=== PATIENT | female | born 1990 | race Caucasian/White ===

== ENCOUNTER → 2018-04-04 | Outpatient (CLI) | payer MEDICAID ==
--- NOTE | 2018-04-04 16:22 | RADIOLOGY REPORT (SQ) ---
EXAM DESCRIPTION: U/S [id number] TRNABD 1GES W/ODOP COMPLETED DATE/TIME: 04/04/2018 1:31 pm REASON FOR STUDY: ENCOUNTER FOR SUPERVISION OF NORMAL FIRST , FIRST TRIMESTER Z34.01 ENCNT R FOR SUPRVSN OF NORMAL FIRST PREG, FIRST TRIMES COMPARISON: None. TECHNIQUE: Transabdominal static and realtime grayscale images acquired of the pelvis. Additional se lected spectral and color Doppler images recorded. All images stored on PACs. bHCG: Not available CLINICAL DATES: 9 weeks 3 days LIMITATIONS: None. FINDINGS: FETUS: Living intrauterine . ULTRASOUND EGA: 8 weeks 5 days ULTRASOUND VALENTE: 11/09/2018 CRL: 2.1 cm FHR: 120 beats per minute. SUBCHORIONIC BLEED: No SIZE OF BLEED: Not applicable. UTERUS: No masses. No anomalies. CERVICAL LENGTH: 2.7 cm Closed. RIGHT ADNEXA: Normal ovary with normal vascular flow. No adnexal free fluid. No adnexal masses. LEFT ADNEXA: Left ovary was not visualized. No adnexal free fluid. No adnexal masses. FREE FLUID: None. OTHER: No other significant finding. IMPRESSION: LIVING INTRAUTERINE . EGA 8 weeks 5 days Trimester of : First - 0 to 13 weeks. TECHNICAL DOCUMENTATION: JOB ID: [id number]- All Rights Reserved rev Reading location - IP/workstation name: [email or web address]
== END ==
LOC: RAD 12:53
PROVIDERS: ATTEND Nurse Practitioner Women's Health
DX: Z34.01 Encounter for supervision of normal first pregnancy, first trimester (principal)
CPT/HCPCS: 76801

== ENCOUNTER 2018-04-27 15:49 | Emergency (ER) | payer SELFPAY ==
[2018-04-27 16:04] VITALS: BP 108/59
--- NOTE | 2018-04-27 17:30 | ER Document Report ---
HPI - HPI Pain Level: Denies Context: Patient is a 9 week 28-year-old female who presents emergency department the chief complaint of migraine headache. Patient states that she has had headaches like this previously most recently since she became . She states that she is only had one which was right when she found out she was . She describes her presentation today as a blurriness of vision and tunnel vision that resolved and then led to a headache behind her left eye that resolved after she took Tylenol. She admits that she previously had light and sound sensitivity which resolved after she took Tylenol. This time she denies any numbness, tingling, vision changes, dizziness, headache, difficulty swallowing, difficulty speaking. - NEURO Neurology: REPORTS: Headache - REPRODUCTIVE LMP: dec 31 Past Medical History - Social History Smoking Status: Never Smoker Family History: Reviewed & Not Pertinent Patient has suicidal ideation: No Patient has homicidal ideation: No Renal/ Medical History: Denies: Hx Peritoneal Dialysis Vertical Provider Document - CONSTITUTIONAL Agree With Documented VS: Yes Notes: PHYSICAL EXAM GENERAL: Alert, interacts well. HEAD: Normocephalic, atraumatic. EYES: Pupils equal, round, and reactive to light. Extraocular movements intact. ENT: Oral mucosa moist, tongue midline. NECK: Full range of motion. Supple. Trachea midline. EXTREMITIES: Moves all 4 extremities spontaneously. radial pulses 2/4 bilaterally. No cyanosis. NEUROLOGICAL: Alert and oriented x4. Face symmetric. Tongue protrudes midline. Extraocular motions intact. Pupils are 2 mm and equally reactive. Normal speech, normal gait. 5 out of 5 strength in both the distal and proximal upper and lower extremities bilaterally. Sensation is grossly intact throughout. PSYCH: Normal affect, normal mood. SKIN: Warm, dry, normal turgor. No rashes or lesions noted. - INFECTION CONTROL TRAVEL OUTSIDE OF THE [place] IN LAST 30 DAYS: No Course - Re-evaluation Re-evalutation: 04/27/18 17:27 Patient is a 28-year-old female who presents emergency department with a chief complaint of headache that is consistent with migraine with aura. Since headache was not the worst headache of her life and resolved after Tylenol and is symptom-free at the time of my evaluation. Patient does not have any focal neurologic deficits, nuchal rigidity, vital signs are within normal limits no papilledema. Patient is otherwise no acute distress and hemodynamically stable. Low index for suspicion of acute subarachnoid hemorrhage, meningitis or mass. Low suspicion for acute life-threatening etiology with intact neuro exam therefore no additional imaging or laboratory testing is indicated. Will discharge patient home with strict follow-up with her ARCHEOLOGIST in referral for neurologist - Vital Signs Vital signs: Temp Pulse Resp BP Pulse Ox 99.0 F 81 20 108/59 L 100 04/27/18 16:01 04/27/18 16:01 04/27/18 16:01 04/27/18 16:01 04/27/18 16:01 Discharge - Discharge Clinical Impression: Headache Qualifiers: Headache type: unspecified Headache chronicity pattern: acute headache Intractability: intractable Qualified Code(s): R51 - Headache Condition: Good Disposition: HOME, SELF-CARE Additional Instructions: You have been seen in the Emergency Department (ED) for a headache. Please use Tylenol (acetaminophen) as needed for symptoms, but only as written on the box. As we have discussed, please follow up with your primary care doctor as soon as possible regarding today's ED visit and your headache symptoms. Call your doctor or return to the ED if you have a worsening headache, sudden and severe headache, confusion, slurred speech, facial droop, weakness or numbness in any arm or leg, extreme fatigue, or other symptoms that concern you. [facility] Neurology [address] [place] Forms: Return to Work Referrals: NELIA STEEL NP [NO LOCAL MD] - Follow up as needed [facility] [NO LOCAL MD] - Follow up as needed
== END 2018-04-27 17:34 | disposition home or self-care (01) ==
LOC: ER 15:49
DX: O26.891 Other specified pregnancy related conditions, first trimester (principal); R51 Headache; H53.8 Other visual disturbances; Z3A.09 9 weeks gestation of pregnancy
CPT/HCPCS: 99283

== ENCOUNTER 2018-11-08 02:51 | Outpatient (CLI) | payer MEDICAID ==
[2018-11-08 03:15] LABS: APPEARANCE,URINE SLIGHTLY-CLOUDY; BILIRUBIN,URINE NEGATIVE (NEGATIVE); COLOR,URINE YELLOW; GLUCOSE, URINE NEGATIVE (NEGATIVE); KETONES,URINE NEGATIVE (NEGATIVE); LEUKOCYTE ESTERASE,URINE NEGATIVE (NEGATIVE); NITRITE,URINE NEGATIVE (NEGATIVE); PROTEIN,URINE 30 mg/dL (NEGATIVE); URINE SPECIFIC GRAVITY 1.019
[2018-11-08 03:32] LABS: URINE AMPHETAMINES SCREEN NEGATIVE; URINE BARBITURATES SCREEN NEGATIVE; URINE BENZODIAZEPINES SCREEN NEGATIVE; URINE COCAINE SCREEN NEGATIVE; URINE MARIJUANA (THC) SCREEN NEGATIVE; URINE METHADONE SCREEN NEGATIVE; URINE PHENCYCLIDINE SCREEN NEGATIVE
[2018-11-08] MEDS ORDERED: HYDROXYZINE PAMOATE 50 MG CAPSULE ONE (04:56)
--- NOTE | 2018-11-08 05:06 | Non Stress Test Report ---
Non Stress Test Datetime Report Generated by CPN: 11/08/2018 05:06 DEMOGRAPHIC EGA NST: 40.4 INDICATION Indication for Study: Ordered by Provider MONITORING Monitor Explained: Monitor Explained; Test Explained; Patient Verbalized Understanding Time on Monitor: 11/08/2018 03:10 Time off Monitor: 11/08/2018 03:56 NST Duration: 46 NST INTERVENTIONS NST Interventions: PO Hydration; Reposition Patient Physician Notified NST: Dr. Arcadio BABY A: [id number] BABY A Movement : Present Contraction Frequency : 1-2 FHR Baseline : 130 Accelerations : 15X15 Decelerations : None Variability : Moderate 6-25bpm NST Review: Meets Criteria for Reactive NST NST Review and Verified By : ELLIE Celestin Results: Reactive NST REPORT Report Trigger: Send Report
[2018-11-08] MEDS ORDERED: HYDROXYZINE PAMOATE 50 MG CAPSULE PO ONE (05:10)
== END 2018-11-08 05:00 | disposition home or self-care (01) ==
LOC: LC 02:51
PROVIDERS: ATTEND Obstetrics & Gynecology
PROC: 4A1HXCZ Monitoring of Products of Conception, Cardiac Rate, External Approach (ICD-10-PCS; principal; 2018-11-08)
DX: O48.0 Post-term pregnancy (principal); Z3A.40 40 weeks gestation of pregnancy
CPT/HCPCS: 59025; 81005; 80307; J3490

== ENCOUNTER 2018-11-08 10:30 | Inpatient (IN) | payer MEDICAID ==
[2018-11-08 11:04] LABS: APPEARANCE,URINE TURBID; BILIRUBIN,URINE NEGATIVE (NEGATIVE); GLUCOSE, URINE NEGATIVE (NEGATIVE); KETONES,URINE NEGATIVE (NEGATIVE); LEUKOCYTE ESTERASE,URINE TRACE (NEGATIVE); NITRITE,URINE NEGATIVE (NEGATIVE); PROTEIN,URINE 100 mg/dL (NEGATIVE); URINE SPECIFIC GRAVITY 1.009; UROBILINOGEN,URINE NEGATIVE mg/dL (<2.0)
[2018-11-08 11:06] LABS: COLOR,URINE DARK YELLOW
[2018-11-08] MEDS ORDERED: RINGERS SOLUTION,LACTATED 1,000 ML IV PRN (11:08)
[2018-11-08] MEDS ORDERED: RINGERS SOLUTION,LACTATED 1,000 ML IV ONE (11:08)
[2018-11-08 11:27] LABS: URINE AMPHETAMINES SCREEN NEGATIVE; URINE BARBITURATES SCREEN NEGATIVE; URINE BENZODIAZEPINES SCREEN NEGATIVE; URINE COCAINE SCREEN NEGATIVE; URINE MARIJUANA (THC) SCREEN NEGATIVE; URINE METHADONE SCREEN NEGATIVE; URINE PHENCYCLIDINE SCREEN NEGATIVE
[2018-11-08 11:41] LABS: ABSOLUTE LYMPHOCYTES (AUTO) 1.7 10^3/uL (0.5-4.7); ABSOLUTE MONOCYTES (AUTO) 0.8 10^3/uL (0.1-1.4); ABSOLUTE NEUT (AUTO) 11.5 10^3/uL (1.7-8.2); BASOPHILS % (AUTO) 0.1 % (0-2); EOSINOPHILS % (AUTO) 0.1 % (0-6); HEMOGLOBIN 10.5 g/dL (12.0-15.5); MEAN CORPUSCULAR HEMOGLOBIN 27.9 pg (27.0-33.4); MEAN CORPUSCULAR HGB CONC 33.8 g/dL (32.0-36.0); MEAN CORPUSCULAR VOLUME 83 fl (80-97); MONOCYTES % (AUTO) 5.6 % (3-13); PLATELET COUNT 194 10^3/uL (150-450); RED BLOOD COUNT 3.76 10^6/uL (3.72-5.28); RED CELL DISTRIBUTION WIDTH 15.8 % (11.5-14.0); SEGMENTED NEUTROPHILS % (AUTO) 82.2 % (42-78); TOTAL CELLS COUNTED % (AUTO) 100 %
[2018-11-08] MEDS ORDERED: MISOPROSTOL 0.2 MG TABLET ONE (11:49)
[2018-11-08] MEDS ORDERED: EPHEDRINE SULFATE INJ 50 MG/1 ML AMPULE ONE (11:50)
[2018-11-08] MEDS ORDERED: LIDOCAINE 1% INJ-PF (10 MG/ML) 30 ML SDV ONE (11:50)
[2018-11-08] MEDS ORDERED: FENTANYL/BUPIVACAINE/NS/PF 300 MCG/150 ML RTUINJ EPI ONE (11:50)
[2018-11-08] MEDS ORDERED: BUPIVACAINE HCL 0.5 % INJ/PF 30 ML SDV ONE (11:51)
[2018-11-08] MEDS ORDERED: OXYTOCIN/NORMAL SALINE 20 UNIT/1,000 ML RTUINJ ONE ×2 (11:51→13:56)
[2018-11-08] MEDS ORDERED: BUPIVACAINE HCL 0.25 % INJ/PF (2.5 MG/1 ML) 30 ML VIAL ONE (11:51)
[2018-11-08] MEDS ORDERED: BUPIVACAINE HCL 0.25 % INJ/PF (2.5 MG/1 ML) 30 ML VIAL INFIL ONE (12:03)
[2018-11-08] MEDS ORDERED: FENTANYL/BUPIVACAINE/NS/PF 200 MCG/100 ML RTUINJ EPI PRN (12:03)
[2018-11-08] MEDS ORDERED: EPHEDRINE SULFATE INJ 50 MG/1 ML AMPULE IV ONE (12:03)
[2018-11-08] MEDS ORDERED: EPHEDRINE SULFATE INJ 50 MG/1 ML AMPULE IV PRN (12:03)
[2018-11-08] MEDS ORDERED: BENZOIN/ALOE VERA/STORAX/TOLU TINCTURE 60 ML TP PRN (12:03)
[2018-11-08] MEDS ORDERED: OXYTOCIN/NORMAL SALINE 20 UNIT/1,000 ML RTUINJ IV PRN ×2 (13:56→20:16)
--- NOTE | 2018-11-08 18:20 | Admission Physical ---
Datetime Report Generated by CPN: 11/08/2018 18:20 CURRENT ADMISSION Chief Complaint: Uterine Contractions Indication for Induction: Not Applicable Admit Impression : Term, Intrauterine Admit Plan: Initiate Labor Protocol ALLERGIES Medication Allergies: No Medication Allergies: No Known Allergies (11/08/2018) Latex: No Latex Allergies Food Allergies: N/A Environmental Allergies: N/A OBSTETRICAL HISTORY EDC: 11/04/2018 00:00 : 1 Para: 0 Term: 0 : 0 SAB: 0 IAB: 0 Ectopic: 0 Livin Cesareans: 0 VBACs: 0 Multiple Births: 0 Gestational Diabetes: No Rh Sensitization: No Incompetent Cervix: No ZANDER: No Infertility: No ART Treatment: No Uterine Anomaly: No IUGR: No Hx Previous C/S: No Macrosomia: No Hx Loss/Stillborn: No PIH: No Hx : No Placenta Previa/Abruption: No Depression/PP Depression: No PTL/PROM: No Post Hemorrhage: No Current Procedures: Ultrasound Obstetrical History Comments: G1- current, positive TORCH titers, left club foot SEE RECORDS Alcohol: No Marijuana : No Cocaine: No Other Illicit Drugs: No Cigarettes: Never Smoker. [id number] MEDICAL HISTORY Diabetes: No Blood Transfusion: No Pulmonary Disease (Asthma, TB): No Breast Disease: No Hypertension: No Medical Practice Administrator Surgery: No Heart Disease: No Hosp/Surgery: No Autoimmune Disorder: No Anesthetic Complications: No Kidney Disease: No Abnormal Pap Smear: No Neuro/Epilepsy: No Psychiatric Disorders: No Other Medical Diseases: No Hepatitis/Liver Disease: No Significant Family History: No Varicosities/Phlebitis: No Trauma/Violence : No Thyroid Dysfunction: No Medical History Comments: HSV Type 1, Migraines INFECTIOUS HISTORY Gonorrhea: No Chlamydia: No Tuberculosis: No Syphilis: No Hepatitis: No HIV/AIDS Exposure: No Rash or Viral Illness: No HPV: No PHYSICAL EXAM General: Normal HEENT: Normal Neurologic: Normal Thyroid: Normal Heart: Normal Lungs: Normal Breast: Deferred Back: Normal Abdomen: Normal Genitourinary Exam: Normal Extremities: Normal DTRs: Normal Pelvic Type: Adequate FETUS A EGA: 40.4 PLANS FOR LABOR AND DELIVERY Labor and Delivery: None Pain Management: None Feeding Preference: Formula Benefit of Breast Feed Discussed: Yes Circumcision: Yes INFORMED CONSENT Signature: with User ID: [email or web address]
[2018-11-08] MEDS ORDERED: BENZOCAINE/MENTHOL AEROSOL SPRAY 56 ML TOP PRN (20:16)
[2018-11-08] MEDS ORDERED: PROMETHAZINE HCL INJ 25 MG/1 ML VIAL IV PRN (20:16)
[2018-11-08] MEDS ORDERED: PSEUDOEPHEDRINE HCL 30 MG TABLET PO PRN (20:16)
[2018-11-08] MEDS ORDERED: DIBUCAINE 1% OINTMENT 28 GM TP PRN (20:16)
[2018-11-08] MEDS ORDERED: DIPH/PERTUSS(ACELL)/TETANUS VAC/PF 0.5 ML SYR (>=10YO) IM PRN (20:16)
[2018-11-08] MEDS ORDERED: DIPHENHYDRAMINE HCL 25 MG CAPSULE PO PRN (20:16)
[2018-11-08] MEDS ORDERED: PROMETHAZINE HCL 25 MG TABLET PO PRN (20:16)
[2018-11-08] MEDS ORDERED: NA PHOS,M-B/NA PHOS,DI-BA (ADULT) 133 ML ENEMA PR PRN (20:16)
[2018-11-08] MEDS ORDERED: ACETAMINOPHEN 650 MG SUPP.RECT PR PRN (20:16)
[2018-11-08] MEDS ORDERED: GLYCERIN/WITCH HAZEL LEAF 1 EACH MED..PAD TP PRN (20:16)
[2018-11-08] MEDS ORDERED: MAGNESIUM HYDROXIDE SUSP 30 ML UDCUP PO PRN (20:16)
[2018-11-08] MEDS ORDERED: PROMETHAZINE HCL 25 MG SUPP.RECT PR PRN (20:16)
[2018-11-08] MEDS ORDERED: MEASLES,MUMPS&RUBELLA VACC/PF 0.5 ML VIAL SUBCUT PRN (20:16)
[2018-11-08] MEDS ORDERED: ZOLPIDEM TARTRATE 5 MG TABLET PO PRN (20:16)
--- NOTE | 2018-11-08 20:19 | PDOC DELIVERY SUMMARY ---
Delivery Summary - Maternal Ruptured Membranes: SROM Fluids: Meconium Stained - Delivery Presentation: Vertex Uterine Contraction Monitoring: External Support Person Present: Yes Placenta: Within Normal Limits Nuchal Cord: No - Medications Type of Anesthesia:: Epidural - vacuume 3 pulls no pop off indication maternal fatigue and ineffective pushing
[2018-11-08] MEDS: FAMOTIDINE 20 MG TABLET PO SCH (22:54)
[2018-11-08] MEDS: IBUPROFEN 800 MG TABLET PO SCH (22:54)
[2018-11-09] MEDS: IBUPROFEN 800 MG TABLET PO SCH ×3 (06:17→21:29)
[2018-11-09 07:28] LABS: HEMATOCRIT 27.5 % (36.0-47.0); HEMOGLOBIN 9.2 g/dL (12.0-15.5); MEAN CORPUSCULAR HEMOGLOBIN 27.9 pg (27.0-33.4); MEAN CORPUSCULAR HGB CONC 33.4 g/dL (32.0-36.0); MEAN CORPUSCULAR VOLUME 84 fl (80-97); PLATELET COUNT 195 10^3/uL (150-450); RED BLOOD COUNT 3.29 10^6/uL (3.72-5.28); WHITE BLOOD COUNT 14.4 10^3/uL (4.0-10.5)
--- NOTE | 2018-11-09 09:18 | PDOC PROGRESS REPORT ---
Subjective-OB Progress Note for:: 11/09/18 Subjective: Doing well, family at BS. sore from laceration, bottle feeding Physical Exam (OB) Vital Signs: Temp Pulse Resp BP Pulse Ox 97.7 F 74 16 102/49 L 99 11/09/18 07:52 11/09/18 07:52 11/09/18 07:52 11/09/18 07:52 11/09/18 07:52 Intake & Output 11/08/18 11/09/18 11/10/18 06:59 06:59 06:59 Weight 84.9 kg - Lochia Lochia Amount: Small 10-25 ml Lochia Color: Rubra/Red - Abdomen Description: Soft, Round Hernia Present: No Fundal Description: Firm, Midline Fundal Height: u/u - u/2 Objective-Diagnostic Laboratory: 11/09/18 07:12 11/08/18 11/08/18 11/08/18 10:40 11:25 11:25 WBC 14.0 H RBC 3.76 Hgb 10.5 L Hct 31.0 L MCV 83 MCH 27.9 MCHC 33.8 RDW 15.8 H Plt Count 194 Seg Neutrophils % 82.2 H Lymphocytes % 12.0 L Monocytes % 5.6 Eosinophils % 0.1 Basophils % 0.1 Absolute Neutrophils 11.5 H Absolute Lymphocytes 1.7 Absolute Monocytes 0.8 Absolute Eosinophils 0.0 Absolute Basophils 0.0 Urine Color DARK YELLOW Urine Appearance TURBID Urine pH 7.0 Ur Specific [place] 1.009 Urine Protein 100 H Urine Glucose (UA) NEGATIVE Urine Ketones NEGATIVE Urine Blood MODERATE H Urine Nitrite NEGATIVE Ur Leukocyte Esterase TRACE H Blood Type B NEGATIVE Antibody Screen NEGATIVE 11/09/18 07:12 WBC 14.4 H RBC 3.29 L Hgb 9.2 L Hct 27.5 L MCV 84 MCH 27.9 MCHC 33.4 RDW 16.0 H Plt Count 195 Seg Neutrophils % Lymphocytes % Monocytes % Eosinophils % Basophils % Absolute Neutrophils Absolute Lymphocytes Absolute Monocytes Absolute Eosinophils Absolute Basophils Urine Color Urine Appearance Urine pH Ur Specific [place] Urine Protein Urine Glucose (UA) Urine Ketones Urine Blood Urine Nitrite Ur Leukocyte Esterase Blood Type Antibody Screen Assessment and Plan(PN) - Assessment and Plan (1) Rh negative status during Qualifiers: Trimester: first trimester Qualified Code(s): O09.891 - Supervision of other high risk pregnancies, first trimester; Z67.91 - Unspecified blood type, Rh negative Is this a current diagnosis for this admission?: Yes (2) Perineal laceration during delivery Qualifiers: Perineal laceration degree: first degree Qualified Code(s): O70.0 - First degree perineal laceration during delivery Is this a current diagnosis for this admission?: Yes (3) Status post vacuum-assisted vaginal delivery Is this a current diagnosis for this admission?: Yes - Time Spent with Patient Time with patient: Less than 15 minutes Medications reviewed and adjusted accordingly: Yes - Disposition Anticipated Discharge: Home Within: within 24 hours
[2018-11-09] MEDS: DOCUSATE SODIUM 100 MG CAPSULE PO SCH ×2 (09:41→18:01)
[2018-11-09] MEDS: ACETAMINOPHEN WITH CODEINE #3 TABLET PO PRN (09:41)
[2018-11-09] MEDS: SENNOSIDES/DOCUSATE 8.6-50 MG 1 EACH TABLET PO SCH (09:41)
[2018-11-09] MEDS: PRENATAL VITAMIN W DHA CAPSULE PO SCH (09:41)
[2018-11-09] MEDS: FAMOTIDINE 20 MG TABLET PO SCH ×2 (09:41→21:30)
[2018-11-09] MEDS: FERROUS SULFATE 325 MG TABLET PO SCH ×2 (09:41→18:01)
[2018-11-10] MEDS: ACETAMINOPHEN WITH CODEINE #3 TABLET PO PRN (00:27)
[2018-11-10] MEDS: IBUPROFEN 800 MG TABLET PO SCH ×2 (06:09→14:48)
[2018-11-10 08:29] VITALS: BP 108/63
[2018-11-10] MEDS: PRENATAL VITAMIN W DHA CAPSULE PO SCH (09:34)
[2018-11-10] MEDS: SENNOSIDES/DOCUSATE 8.6-50 MG 1 EACH TABLET PO SCH (09:34)
[2018-11-10] MEDS: DOCUSATE SODIUM 100 MG CAPSULE PO SCH (09:34)
[2018-11-10] MEDS: FERROUS SULFATE 325 MG TABLET PO SCH (09:35)
[2018-11-10] MEDS: FAMOTIDINE 20 MG TABLET PO SCH (09:35)
--- NOTE | 2018-11-10 10:26 | PDOC PROGRESS REPORT ---
Subjective-OB Progress Note for:: 11/10/18 Subjective: Doing well, no c/o, ready to go home, bottle feeding Physical Exam (OB) Vital Signs: Temp Pulse Resp BP Pulse Ox 97.7 F 64 15 108/63 100 11/10/18 08:15 11/10/18 08:15 11/10/18 08:15 11/10/18 08:15 11/10/18 08:15 Intake & Output 11/09/18 11/10/18 11/11/18 06:59 06:59 06:59 Intake Total 650 Balance 650 Weight 84.9 kg - Lochia Lochia Amount: Scant < 10 ml Lochia Color: Rubra/Red - Abdomen Description: Soft, Round Hernia Present: No Fundal Description: Firm, Midline Fundal Height: u/u - u/2 Objective-Diagnostic Laboratory: 11/09/18 07:12 Assessment and Plan(PN) - Assessment and Plan (1) Rh negative status during Qualifiers: Trimester: first trimester Qualified Code(s): O09.891 - Supervision of other high risk pregnancies, first trimester; Z67.91 - Unspecified blood type, Rh negative Is this a current diagnosis for this admission?: Yes (2) Perineal laceration during delivery Qualifiers: Perineal laceration degree: first degree Qualified Code(s): O70.0 - First degree perineal laceration during delivery Is this a current diagnosis for this admission?: Yes (3) Status post vacuum-assisted vaginal delivery Is this a current diagnosis for this admission?: Yes - Time Spent with Patient Time with patient: Less than 15 minutes Medications reviewed and adjusted accordingly: Yes - Disposition Anticipated Discharge: Home Within: within 24 hours
--- NOTE | 2018-11-10 10:29 | PDOC DISCHARGE SUMMARY ---
Final Diagnosis Discharge Date: 11/10/18 - Final Diagnosis (1) Rh negative status during Is this a current diagnosis for this admission?: Yes (2) Perineal laceration during delivery Is this a current diagnosis for this admission?: Yes (3) Status post vacuum-assisted vaginal delivery Is this a current diagnosis for this admission?: Yes Discharge Data - Discharge Medication Home Medications: Ferrous Sulfate [Iron] 325 mg PO DAILY 11/08/18 Prenat 115/Iron Fum/Folic/Dss [ 19 Tablet] 1 tab PO DAILY 11/08/18 Gestational Age: 40.4 Reason(s) for Admission: Onset of Labor Procedures: NST, Ultrasound Intrapartum Procedure(s): Vacuum Extraction Complication(s): Laceration-Perineal Laceration-Degree: 1st - Diagnosis Test Laboratory: Temp Pulse Resp BP Pulse Ox 97.7 F 64 15 108/63 100 11/10/18 08:15 11/10/18 08:15 11/10/18 08:15 11/10/18 08:15 11/10/18 08:15 11/08/18 11/08/18 11/09/18 10:40 11:25 07:12 RBC 3.76 3.29 L Hgb 10.5 L 9.2 L Hct 31.0 L 27.5 L Urine Opiates Screen NEGATIVE - Discharge information/Instructions Discharge Activity: Activity As Tolerated, No Lifting Over 10 Pounds, No Lifting/Push/Pulling, Pelvic Rest Discharge Diet: As Tolerated, Regular Disposition: HOME, SELF-CARE Follow up with: [facility] in: 2, Weeks
--- NOTE | 2018-11-23 15:43 | Delivery Summary ---
Del Sum A-C Datetime Report Generated by CPN: 11/23/2018 15:43 DELIVERY PERSONNEL DELIVERY PERSONNEL: [id number] Delivery Doctor:: David Prajapati MD Labor and Delivery Nurse:: Evan Gardiner RNplant buyer Nurse:: Michelle Arenas RN Nursery Nurse:: Jeane Klein RN Oil Well Pumper/GROOVING LATHE TENDER: Mayra Ross, ST MATERNAL INFORMATION Delivery Anesthesia: Epidural Medications After Delivery: Pitocin Drip 20 Units/1000ml NSS Maternal Complications: None; Prolonged Second Stage > 2 Hrs Provider Comments: vacuume 3 pulls no pop offs LABOR SUMMARY EDC: 11/04/2018 00:00 No. Babies in Womb: 1 Attempted: No Labor Anesthesia: Epidural LABOR INFORMATION Reason for Induction: Not Applicable Reason for Induction: Not Applicable Onset of Labor: 11/08/2018 08:00 Complete Dilatation: 11/08/2018 18:02 Oxytocin: Augmentation Group B Beta Strep: Negative Antibiotics # of Doses: 0 Antibiotics Time of Last Dose: N/A Name of Antibiotic Given: N/A Steroids Given: None Reason Steroids Not Administered: Not Applicable MEMBRANES Membranes Rupture Method: Spontaneous Rupture of Membranes: 11/08/2018 10:00 Length of Rupture (hr): 10.00 Amniotic Fluid Color: Light Meconium Amniotic Fluid Amount: Small Amniotic Fluid Odor: Normal STAGES OF LABOR Stage 1 hr: 10 Stage 1 min: 2 Stage 2 hr: 1 Stage 2 min: 58 Stage 3 hr: 0 Stage 3 min: 4 Total Time in Labor hr: 12 Total Time in Labor min: 4 VAGINAL DELIVERY Episiotomy: None Laceration #1: Perineal Laceration Extension #1: First Degree Laceration Repair: Yes Laceration Repair Note: repaired with 20 vicryl Initial Vag Sponge Count: 0 Final Vag Sponge Count: 0 Initial Vag Sharps Count: 0 Final Vag Sharps Count: 0 Sharps Count Correct: N/A CSECTION DELIVERY Primary Indication: N/A Secondary Indication: N/A CSection Incidence: N/A Labor: N/A Elective: N/A CSection Incision: N/A BABY A INFORMATION Infant Delivery Date/Time: 11/08/2018 20:00 Method of Delivery: Vaginal Born in Route : No : N/A Forceps: N/A Vacuum Extraction: Successful Shoulder Dystocia : No ASSISTED DELIVERY BABY A Indication for Assisted Delivery: Failure to progress Catheter Prior to Procedure: Yes Station Vacuum/Forcep Apply: 0 Position Vacuum/Forcep Apply: Right Occipital Anterior Vacuum Number of Pulls: 3 Vacuum Number of PopOffs: 0 Vacuum Maximum Pressure Obtained: 500 Reduce Pressure btwn Ctx: Yes Vacuum Tank Refinisher: Ditto [employer] Pump Total Time Vacuum Applied: 4 minutes Type of Forceps: N/A Vacuum/Forceps Comment: abraision noted on baby's head by nursery RN Li PRESENTATION/POSITION BABY A Presentation: Cephalic Cephalic Presentation: Vertex Vertex Position: Right Occipital Anterior Breech Presentation: N/A PLACENTA INFORMATION BABY A Placenta Delivery Time : 11/08/2018 20:04 Placenta Method of Delivery: Spontaneous Placenta Status: Delivered SCORES BABY A Heart Rate 1 min: >100 bpm Resp Effort 1 min: Good Cry Reflex Irritability 1 min: Cough or Sneeze or Pulls Away Muscle Tone 1 min: Active Motion Color 1 min: Body [place], Extremities Blue Resuscitation Effort 1 min: N/A SCORE 1 MIN: 9 Heart Rate 5 min: >100 bpm Resp Effort 5 min: Good Cry Reflex Irritability 5 min: Cough or Sneeze or Pulls Away Muscle Tone 5 min: Active Motion Color 5 min: Body [place], Extremities Blue Resuscitation Effort 5 min: N/A SCORE 5 MIN: 9 INFANT INFORMATION BABY A Gestational Age at Delivery: 40.0 Gestational Status: Full Term- 39- 40.6 Weeks Outcome : Liveborn Condition : Stable Sex: Male IDENTIFICATION BABY A Infant Verification Date/Time: 11/08/2018 21:12 ID Band Number: [id number] Mother's Name Verified: Yes Infant RN Verifying : MAGUEjhonathan ARGUETA Additional Verifying Personnel: Raphael RN WEIGHT/LENGTH BABY A Infant Birthweight (gm): 3879 Infant Weight (lb): 8 Infant Weight (oz): 9 Infant Length (in): 20.50 Infant Length (cm): 52.07 CORD INFORMATION BABY A No. Cord Vessels: 3 Nuchal Cord : N/A Cord Blood Taken: Yes-For Eval (Mom's Blood Type - or O+) Suction: Mouth; Nose ASSESSMENT BABY A Infant Complications: None Complications- Other: meconium Physical Findings at Delivery: Within Normal Limits; Molding of the Head Skin to Skin: Yes Skin to Skin Time (min): 60 Transferred To: Nursery BABY B INFORMATION : N/A SIGNATURES Signature: with User ID: [email or web address]
== END 2018-11-10 17:10 | disposition home or self-care (01) | DRG 806 ==
LOC: LC 10:30 → LR 11:11 → 2S 22:02
PROVIDERS: ADMIT Obstetrics & Gynecology Gynecology; ATTEND Obstetrics & Gynecology Gynecology
PROC: 10D07Z6 Extraction of Products of Conception, Vacuum, Via Natural or Artificial Opening (ICD-10-PCS; principal; 2018-11-08)
DX: O36.0930 Maternal care for other rhesus isoimmunization, third trimester, not applicable or unspecified (principal); O98.32 Other infections with a predominantly sexual mode of transmission complicating childbirth; Z37.0 Single live birth; O63.1 Prolonged second stage (of labor); O70.0 First degree perineal laceration during delivery; O77.0 Labor and delivery complicated by meconium in amniotic fluid; A60.00 Herpesviral infection of urogenital system, unspecified; Z3A.40 40 weeks gestation of pregnancy
CPT/HCPCS: 36415; 80307; 81005; 84112; 85025; 85027; 86592; 86850; 86900; 86901; 88307; 90471; 90686; 90707; G0008; J2590; J3010; J3490

== ENCOUNTER 2020-08-13 09:48 | Inpatient (IN) | payer MEDICAID ==
[2020-08-13] MEDS ORDERED: RINGERS SOLUTION,LACTATED 1,000 ML IV ONE (10:04)
[2020-08-13] MEDS ORDERED: RINGERS SOLUTION,LACTATED 1,000 ML IV PRN (10:04)
[2020-08-13] MEDS ORDERED: OXYTOCIN/0.9 % SODIUM CHLORIDE 30 UNIT/500 ML RTUINJ IV PRN ×2 (10:04→17:33)
[2020-08-13] MEDS ORDERED: OXYTOCIN 10 UNIT/ML VIAL ONE (10:43)
[2020-08-13] MEDS ORDERED: MISOPROSTOL 0.2 MG TABLET ONE (10:43)
[2020-08-13] MEDS ORDERED: LIDOCAINE 1% INJ-PF (10 MG/ML) 30 ML SDV ONE (10:44)
[2020-08-13] MEDS ORDERED: OXYTOCIN/0.9 % SODIUM CHLORIDE 30 UNIT/500 ML RTUINJ ONE (10:44)
[2020-08-13 10:47] LABS: ABSOLUTE LYMPHOCYTES (AUTO) 1.8 10^3/uL (0.5-4.7); ABSOLUTE MONOCYTES (AUTO) 0.5 10^3/uL (0.1-1.4); ABSOLUTE NEUT (AUTO) 7.6 10^3/uL (1.7-8.2); BASOPHILS % (AUTO) 0.2 % (0-2); EOSINOPHILS % (AUTO) 0.4 % (0-6); HEMATOCRIT 33.5 % (36.0-47.0); HEMOGLOBIN 11.6 g/dL (12.0-15.5); LYMPHOCYTES % (AUTO) 17.9 % (13-45); MEAN CORPUSCULAR HEMOGLOBIN 29.5 pg (27.0-33.4); MEAN CORPUSCULAR HGB CONC 34.7 g/dL (32.0-36.0); MEAN CORPUSCULAR VOLUME 85 fl (80-97); MONOCYTES % (AUTO) 5.3 % (3-13); PLATELET COUNT 214 10^3/uL (150-450); RED BLOOD COUNT 3.94 10^6/uL (3.72-5.28); RED CELL DISTRIBUTION WIDTH 15.5 % (11.5-14.0); SEGMENTED NEUTROPHILS % (AUTO) 76.2 % (42-78); TOTAL CELLS COUNTED % (AUTO) 100 %
[2020-08-13 10:52] LABS: APPEARANCE,URINE CLOUDY; BILIRUBIN,URINE NEGATIVE (NEGATIVE); COLOR,URINE YELLOW; GLUCOSE, URINE NEGATIVE (NEGATIVE); KETONES,URINE NEGATIVE (NEGATIVE); LEUKOCYTE ESTERASE,URINE LARGE (NEGATIVE); NITRITE,URINE NEGATIVE (NEGATIVE); PROTEIN,URINE NEGATIVE (NEGATIVE); URINE SPECIFIC GRAVITY 1.005; UROBILINOGEN,URINE NEGATIVE mg/dL (<2.0)
[2020-08-13 11:17] LABS: URINE AMPHETAMINES SCREEN NEGATIVE; URINE BARBITURATES SCREEN NEGATIVE; URINE BENZODIAZEPINES SCREEN NEGATIVE; URINE COCAINE SCREEN NEGATIVE; URINE MARIJUANA (THC) SCREEN NEGATIVE; URINE METHADONE SCREEN NEGATIVE; URINE PHENCYCLIDINE SCREEN NEGATIVE
--- NOTE | 2020-08-13 13:02 | Admission Physical ---
Datetime Report Generated by CPN: 08/13/2020 13:01 CURRENT ADMISSION Chief Complaint: Scheduled Induction of Labor Indication for Induction: IUGR Admit Impression : Term, Intrauterine ; Induction of Labor Admit Plan: Admit to Unit; Initiate Labor Induction Protocol ALLERGIES Medication Allergies: No Medication Allergies: No Known Allergies (08/13/2020) Latex: No Latex Allergies OBSTETRICAL HISTORY EDC: 08/17/2020 00:00 : 2 Para: 1 Term: 1 : 0 SAB: 0 IAB: 0 Ectopic: 0 Livin Cesareans: 0 VBACs: 0 Multiple Births: 0 Gestational Diabetes: No Rh Sensitization: No Incompetent Cervix: No ZANDER: No Infertility: No ART Treatment: No Uterine Anomaly: No IUGR: No Hx Previous C/S: No Macrosomia: No Hx Loss/Stillborn: No PIH: No Hx : No Placenta Previa/Abruption: No Depression/PP Depression: No PTL/PROM: No Post Hemorrhage: No Current Procedures: Ultrasound; NST Obstetrical History Comments: G1 , male , epidural, baby born with club foot 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 [id number] MEDICAL HISTORY Diabetes: No Blood Transfusion: No Pulmonary Disease (Asthma, TB): No Breast Disease: No Hypertension: No Overage Shortage And Damage Clerk Surgery: No Heart Disease: No Hosp/Surgery: Yes Autoimmune Disorder: No Anesthetic Complications: No Kidney Disease: No Abnormal Pap Smear: No Neuro/Epilepsy: No Psychiatric Disorders: No Other Medical Diseases: No Hepatitis/Liver Disease: No Significant Family History: No Varicosities/Phlebitis: No Trauma/Violence : No Thyroid Dysfunction: No Medical History Comments: Hospitalization for previous INFECTIOUS HISTORY Gonorrhea: No Genital Herpes: Yes Chlamydia: No Tuberculosis: No Syphilis: No Hepatitis: No HIV/AIDS Exposure: No Rash or Viral Illness: No HPV: No PHYSICAL EXAM General: Normal HEENT: Deferred Neurologic: Normal Thyroid: Deferred Heart: Deferred Lungs: Normal Breast: Deferred Back: Normal Abdomen: Normal Genitourinary Exam: Normal Extremities: Normal DTRs: Deferred Pelvic Type: Adequate Vital Signs: Reviewed VAGINAL EXAM Dilatation: 3 Effacement: 50 FETUS A EGA: 39.3 Monitoring: External US Variability: Marked >25bpm Decelerations: None FHR Category: Category I Presentation: Vertex Admit Comment: admit for Induction for IUGR GBS neg PLANS FOR LABOR AND DELIVERY Labor and Delivery: None Pain Management: Epidural Feeding Preference: Formula Benefit of Breast Feed Discussed: Yes Circumcision: N/A INFORMED CONSENT Assignment: David Prajapati MD Signature: with User ID: [email or web address] : with User ID: [email or web address]
[2020-08-13] MEDS ORDERED: EPHEDRINE SULFATE INJ 50 MG/1 ML AMPULE ONE (13:36)
[2020-08-13] MEDS ORDERED: FENTANYL/BUPIVACAINE/NS/PF 300 MCG/150 ML RTUINJ EPI ONE (13:37)
[2020-08-13] MEDS ORDERED: ROPIVACAINE HCL 0.2% INJ/PF (2 MG/ML) 20 ML SDV ONE (13:37)
[2020-08-13] MEDS ORDERED: ACETAMINOPHEN 650 MG SUPP.RECT PR PRN (17:33)
[2020-08-13] MEDS ORDERED: PROMETHAZINE HCL 25 MG TABLET PO PRN (17:33)
[2020-08-13] MEDS ORDERED: ACETAMINOPHEN WITH CODEINE #3 TABLET PO PRN (17:33)
[2020-08-13] MEDS ORDERED: PROMETHAZINE HCL 25 MG SUPP.RECT PR PRN (17:33)
[2020-08-13] MEDS ORDERED: BENZOCAINE/MENTHOL AEROSOL SPRAY 56 ML TOP PRN (17:33)
[2020-08-13] MEDS ORDERED: DIPH/PERTUSS(ACELL)/TETANUS VAC/PF 0.5 ML SYR (>=10YO) IM PRN (17:33)
[2020-08-13] MEDS ORDERED: PSEUDOEPHEDRINE HCL 30 MG TABLET PO PRN (17:33)
[2020-08-13] MEDS ORDERED: MEASLES,MUMPS&RUBELLA VACC/PF 0.5 ML VIAL SUBCUT PRN (17:33)
[2020-08-13] MEDS ORDERED: DIPHENHYDRAMINE HCL 25 MG CAPSULE PO PRN (17:33)
[2020-08-13] MEDS ORDERED: MAGNESIUM HYDROXIDE SUSP 30 ML UDCUP PO PRN (17:33)
[2020-08-13] MEDS ORDERED: DIBUCAINE 1% OINTMENT 28 GM TP PRN (17:33)
[2020-08-13] MEDS ORDERED: NA PHOS,M-B/NA PHOS,DI-BA (ADULT) 133 ML ENEMA PR PRN (17:33)
[2020-08-13] MEDS ORDERED: ZOLPIDEM TARTRATE 5 MG TABLET PO PRN (17:33)
[2020-08-13] MEDS ORDERED: PROMETHAZINE HCL INJ 25 MG/1 ML VIAL IV PRN (17:33)
[2020-08-13] MEDS ORDERED: GLYCERIN/WITCH HAZEL LEAF 1 EACH MED..WIPE TP PRN (17:33)
[2020-08-13] MEDS ORDERED: DOCUSATE SODIUM 100 MG CAPSULE ONE (18:09)
[2020-08-13] MEDS ORDERED: IBUPROFEN 800 MG TABLET ONE ×2 (18:09→20:21)
[2020-08-13] MEDS ORDERED: FERROUS SULFATE 325 MG TABLET PO ONE (18:09)
[2020-08-13] MEDS: DOCUSATE SODIUM 100 MG CAPSULE PO SCH (18:12)
[2020-08-13] MEDS: FERROUS SULFATE 325 MG TABLET PO SCH (18:12)
--- NOTE | 2020-08-13 18:43 | Delivery Summary ---
Del Sum A-C Datetime Report Generated by CPN: 08/13/2020 18:42 DELIVERY PERSONNEL DELIVERY PERSONNEL: [id number] Delivery Doctor:: David Prajapati MD Labor and Delivery Nurse:: Zandra Clinton RNbed worker Nurse:: Cassie Bauer RNC Nursery Nurse:: Lalitha Colon RN Nursery Nurse:: Tali Romero RN It Risk Advisor/CIVIL ENGINEERING DRAFTER: Caroline Castillo, ST It Risk Advisor/CIVIL ENGINEERING DRAFTER: Halle Rodriguez CNA II Additional Personnel: : Sidra Black MATERNAL INFORMATION Delivery Anesthesia: Epidural Medications After Delivery: Pitocin Bolus-Please Comment; Pitocin 30 Units in 500ml NS/D5W Delivery QBL: 50 Maternal Complications: None LABOR SUMMARY EDC: 08/17/2020 00:00 No. Babies in Womb: 1 Attempted: No Labor Anesthesia: Epidural LABOR INFORMATION Reason for Induction: Intrauterine Growth Retardation Onset of Labor: 08/13/2020 13:24 Complete Dilatation: 08/13/2020 16:54 Other Ripening Agents: 0 Oxytocin: Induction Group B Beta Strep: Negative Name of Antibiotic Given: N/A Steroids Given: None Reason Steroids Not Administered: Not Applicable MEMBRANES Membranes Rupture Method: Artificial Rupture of Membranes: 08/13/2020 11:06 Length of Rupture (hr): 6.28 Amniotic Fluid Color: Clear Amniotic Fluid Amount: Scant Amniotic Fluid Odor: Normal STAGES OF LABOR Stage 1 hr: 3 Stage 1 min: 30 Stage 2 hr: 0 Stage 2 min: 29 Stage 3 hr: 0 Stage 3 min: 4 Total Time in Labor hr: 4 Total Time in Labor min: 3 VAGINAL DELIVERY Episiotomy: None Laceration #1: Perineal Laceration Extension #1: First Degree Laceration Repair: Yes Sponge Count Correct: N/A Sharps Count Correct: N/A CSECTION DELIVERY Primary Indication: N/A Secondary Indication: N/A CSection Incidence: N/A Labor: N/A Elective: N/A CSection Incision: N/A BABY A INFORMATION Infant Delivery Date/Time: 08/13/2020 17:23 Method of Delivery: Vaginal Nurse Controlled Delivery: No Born in Route : No : N/A Forceps: N/A Vacuum Extraction: N/A Shoulder Dystocia : No PRESENTATION/POSITION BABY A Presentation: Cephalic Cephalic Presentation: Vertex Vertex Position: Right Occipital Anterior Breech Presentation: N/A PLACENTA INFORMATION BABY A Placenta Delivery Time : 08/13/2020 17:27 Placenta Method of Delivery: Spontaneous Placenta Status: Delivered SCORES BABY A Heart Rate 1 min: >100 bpm Resp Effort 1 min: Good Cry Reflex Irritability 1 min: Cough or Sneeze or Pulls Away Muscle Tone 1 min: Active Motion Color 1 min: Body Speers, Extremities Blue Resuscitation Effort 1 min: Tactile Stimulation SCORE 1 MIN: 9 Heart Rate 5 min: >100 bpm Resp Effort 5 min: Good Cry Reflex Irritability 5 min: Cough or Sneeze or Pulls Away Muscle Tone 5 min: Active Motion Color 5 min: Body [place], Extremities Blue Resuscitation Effort 5 min: N/A SCORE 5 MIN: 9 Resuscitation Effort 10 min: N/A INFANT INFORMATION BABY A Gestational Age at Delivery: 39.3 Gestational Status: Full Term- 39- 40.6 Weeks Outcome : Liveborn Condition : Stable Sex: Female IDENTIFICATION BABY A Verification Date/Time: 08/13/2020 17:33 ID Band Number: [id number] Mother's Name Verified: Yes RN Verifying : scamp RNC Additional Verifying Personnel: A [place] RN WEIGHT/LENGTH BABY A Infant Birthweight (gm): 2929 Infant Weight (lb): 6 Infant Weight (oz): 7 Infant Length (in): 18.75 Infant Length (cm): 47.63 CORD INFORMATION BABY A No. Cord Vessels: 3 Nuchal Cord : N/A Nuchal Cord- Other: body cord Cord Blood Taken: Yes-For Eval (Mom's Blood Type - or O+) Suction: None ASSESSMENT BABY A Infant Complications: None Physical Findings at Delivery: Within Normal Limits Respirations: Appears Normal Skin to Skin: Yes Print Line Operator/ALS Called : No Infant Care By: C Nick RN Transferred To: Remains with Mother BABY B INFORMATION : N/A SIGNATURES Signature: with User ID: [email or web address] : I was personally available for consultation and serving as supervising physician for the MLP.
--- NOTE | 2020-08-13 18:43 | Birth Certificate Data ---
Cert Data Datetime Report Generated by RONEN: 08/13/2020 18:42 CERTIFICATE DATA 47a. Care: No (08/13/2020 09:31:Meliza Manley RN) 47b. Date of First Visit: 02/21/2020 00:00 (08/13/2020 09:31:Meliza Manley RN) 47c. Date of Last Visit: 08/09/2020 00:00 (08/13/2020 09:31:Meliza Manley RN) 47d. Number of Visits: 11 (08/13/2020 09:31:Meliza Manley RN) 48a. Number of Prev Live Births: 1 (08/13/2020 09:31:Meliza Manley RN) 48b. Now Livin (08/13/2020 09:31:Meliza Manley RN) 48c. Live Births Now : 0 (08/13/2020 09:31:QS system process) 48d. Date of Last Live : 11/08/2018 00:00 (08/13/2020 09:31:Meliza Manley RN) 48e. Losses: 0 (08/13/2020 09:31:Meliza Manley RN) RISK FACTORS IN THIS 49a. Diabetes: No (08/13/2020 09:31:Meliza Manley RN) 49b. Hypertension: No (08/13/2020 09:31:Meliza Manley RN) 49c. Previous Births: 0 (08/13/2020 09:31:Meliza Manley RN) 49d. Stillborns: No (08/13/2020 09:31:Meliza Manley RN) 49d. IUGR: No (08/13/2020 09:31:Meliza Manley RN) 49e. Infertility Treatment: No (08/13/2020 09:31:Meliza Manley RN) 49f. Previous Cesareans: 0 (08/13/2020 09:31:Meliza Manley RN) Mother's Height 50b. Height Inches: 64 (08/13/2020 18:24:QS system process) Mother's Weight 51a. Pre- Weight (lbs): 160 (08/13/2020 09:31:Meliza Manley RN) 51b. Weight at Delivery (lbs): 189 (08/13/2020 10:03:QS system process) 52. Dt Last Normal Menses Began: 11/11/2019 00:00 (08/13/2020 09:31:Meliza Manley RN) Infections Present/Treated 53a. Gonorrhea: No (08/13/2020 09:31:Meliza Manley RN) Results this Hospital Visit : Negative (08/13/2020 09:31:Meliza Manley RN) 53b. Syphilis: No (08/13/2020 09:31:Meliza Manley RN) 53c. Chlamydia: No (08/13/2020 09:31:Meliza Manley RN) Results this Hospital Visit: Negative (08/13/2020 09:31:Meliza Manley RN) 53d. Hepatitis B: No (08/13/2020 09:31:Meliza Manley RN) Results this Hospital Visit: Negative (08/13/2020 09:31:Meliza Manley RN) 53h. Mother Tested for HBsAG: Yes (08/13/2020 09:31:Meliza Manley RN) 53i. Date Tested: 02/21/2020 00:00 (08/13/2020 09:31:Meliza Manley RN) 53j. Test Result: Negative (08/13/2020 09:31:Meliza Manley RN) Obstetric Procedures 54a, b, c. Obstetric Procedures: Ultrasound; NST (08/13/2020 09:31:Meliza Manley RN) Cigarette Smoking Cigarette Smoking: Never Smoker. [id number] (08/13/2020 09:31:Meliza Manley RN) 55a. 3 Months Before Preg - Ci (08/13/2020 09:31:Meliza Manley RN) 55a. Packs: 0 (08/13/2020 09:31:Meliza Manley RN) 55b. 1st Trimester of Preg- Ci (08/13/2020 09:31:Meliza Manley RN) 55b. Packs: 0 (08/13/2020 09:31:Meliza Manley RN) 55c. 2nd Trimester of Preg- Ci (08/13/2020 09:31:Meliza Manley RN) 55c. Packs: 0 (08/13/2020 09:31:Meliza Manley RN) 55d. 3rd Trimester of Preg- Ci (08/13/2020 09:31:Meliza Manley RN) 55d. Packs: 0 (08/13/2020 09:31:Meliza Manley RN) Onset of Labor 56a. PROM >12 Hrs: 6.28 (08/13/2020 09:31:QS system process) 56b. Precipitous Labor <3 Hrs: 4 (08/13/2020 09:31:QS system process) 56c. Prolonged Labor > 20 Hrs: 4 (08/13/2020 09:31:QS system process) 57a. Induction of Labor: Induction (08/13/2020 09:31:HERON Xavier) 57a. Induction of Labor: 0 (08/13/2020 09:31:Meliza Manley RN) 57c. Non-Vertex Presentation A: Vertex (08/13/2020 09:31:Cassie Bauer [facility]) 57d. Steroids - Lung Mat: None (08/13/2020 09:31:Cassie Bauer [facility]) 57d. Steroids - Lung Mat: Not Applicable (08/13/2020 09:31:Cassie Bauer [facility]) 57g. Moderate/Heavy Meconium: Clear (08/13/2020 11:56:Meliza Manley RN) 57h. Intolerance of Labor: N/A (08/13/2020 09:31:Cassie Bauer [facility]) : N/A (08/13/2020 09:31:Cassie Bauer [facility]) 57i. Epidural/Spinal Anesthesia: Epidural (08/13/2020 09:31:Cassie Bauer [facility]) Method of Delivery 58a. Forceps - Unsuccessful A: N/A (08/13/2020 09:31:[facility]) 58b. Vacuum - Unsuccessful A: N/A (08/13/2020 09:31:[facility]) 58c. Presentation at 58c. Presentation at - A : Vertex (08/13/2020 09:31:[facility]) 58c. Presentation at - A : N/A (08/13/2020 09:31:[facility]) 58c. Presentation at - A : Cephalic (08/13/2020 14:56:Meliza Manley ) Final Route and Method of Del 58d. Baby A Route/Delivery: Vaginal (08/13/2020 09:31:[facility]) 58e. Trial of Labor Attempted: No (08/13/2020 09:31:[facility]) 58e. Trial of Labor Attempted A: N/A (08/13/2020 09:31:[facility]) 58e. Trial of Labor Attempted B: N/A (08/13/2020 09:31:[facility]) Maternal Morbidity 59b. 3rd or 4th Degree Lacs: Perineal (08/13/2020 09:31:[facility]) Birthweight Baby A: 2929 (08/13/2020 09:31:Meliza Manley RN) 60a. Pounds : 6 (08/13/2020 09:31:QS system process) 60b. Ounces: 7 (08/13/2020 09:31:QS system process) 61. GA at Delivery [facility]: [facility] : Full Term- 39- 40.6 Weeks (08/13/2020 09:31:QS system process) 62a. 5 Minute Baby A: 9 (08/13/2020 09:31:QS system process)
[2020-08-13] MEDS: FAMOTIDINE 20 MG TABLET PO SCH (22:42)
[2020-08-14] MEDS: IBUPROFEN 800 MG TABLET PO SCH ×4 (01:44→22:26)
[2020-08-14 06:51] LABS: HEMATOCRIT 37.8 % (36.0-47.0); MEAN CORPUSCULAR HEMOGLOBIN 29.7 pg (27.0-33.4); MEAN CORPUSCULAR HGB CONC 34.4 g/dL (32.0-36.0); MEAN CORPUSCULAR VOLUME 86 fl (80-97); PLATELET COUNT 228 10^3/uL (150-450); RED BLOOD COUNT 4.38 10^6/uL (3.72-5.28); RED CELL DISTRIBUTION WIDTH 16.3 % (11.5-14.0); WHITE BLOOD COUNT 12.7 10^3/uL (4.0-10.5)
[2020-08-14] MEDS: DOCUSATE SODIUM 100 MG CAPSULE PO SCH ×2 (10:14→17:44)
[2020-08-14] MEDS: PRENATAL VITAMIN W DHA CAPSULE PO SCH (10:15)
[2020-08-14] MEDS: FERROUS SULFATE 325 MG TABLET PO SCH ×2 (10:15→17:43)
[2020-08-14] MEDS: FAMOTIDINE 20 MG TABLET PO SCH ×2 (10:15→22:26)
[2020-08-14] MEDS: SENNOSIDES/DOCUSATE 8.6-50 MG 1 EACH TABLET PO SCH (10:15)
--- NOTE | 2020-08-14 12:04 | PDOC PROGRESS REPORT ---
Subjective-OB Progress Note for:: 08/14/20 Subjective: 30yo s/p ppd1 ambulating and voiding without difficulty. Reports pain well controlled by medication, denies any concerns Physical Exam (OB) Vital Signs: Temp Pulse Resp BP Pulse Ox 97.7 F 69 16 110/73 99 08/14/20 08:41 08/14/20 07:39 08/14/20 07:39 08/14/20 07:39 08/14/20 07:39 Intake & Output 08/13/20 08/14/20 08/15/20 06:59 06:59 06:59 Intake Total 340 Output Total 800 Balance -800 340 Weight 86 kg - General General Appearance: Appears well In distress: None - PIH/Pre-Eclampsia Clonus: Negative Headache: Absent Epigastric Pain: No Visual Changes: No - Maternal Morbidity 59. Maternal Morbidity (serious complications experinced by the mother associated with labor and delivery: None of the above - Episiotomy/Laceration Site Condition: Well Approximated - Lochia Lochia Amount: Scant < 10 ml Lochia Color: Rubra/Red - Abdomen Description: Soft, Round Hernia Present: No Fundal Description: Firm Fundal Height: u/u - u/2 - Respiratory Respiratory Status: No respiratory distress - Extremities Upper extremity: Normal inspection Lower extremities: Normal inspection - Neurological Cognition: Normal Orientation: AAOx4 - Psychological Associated symptoms: Normal affect, Normal mood Objective-Diagnostic Laboratory: 08/14/20 06:38 08/14/20 06:38 WBC 12.7 H RBC 4.38 Hgb 13.0 Hct 37.8 MCV 86 MCH 29.7 MCHC 34.4 RDW 16.3 H Plt Count 228 Assessment and Plan(PN) - Assessment and Plan (1) Anemia complicating , third trimester Is this a current diagnosis for this admission?: Yes Plan: Increase dietary iron and FeSO4 BID. (2) Perineal laceration during delivery Qualifiers: Perineal laceration degree: first degree Is this a current diagnosis for this admission?: Yes Plan: continue to monitor for s/s of infection (3) Rh negative status during Qualifiers: Trimester: third trimester Qualified Code(s): O26.893 - Other specified related conditions, third trimester; Z67.91 - Unspecified blood type, Rh negative Is this a current diagnosis for this admission?: Yes Plan: baby also Rh negative (4) Status post vacuum-assisted vaginal delivery Is this a current diagnosis for this admission?: Yes Plan: routine pp care - Time Spent with Patient Time with patient: Less than 15 minutes Medications reviewed and adjusted accordingly: Yes - Disposition Anticipated Discharge Disposition: Home, Self Care Anticipated Discharge Timeframe: within 24 hours
[2020-08-15] MEDS: IBUPROFEN 800 MG TABLET PO SCH (05:43)
[2020-08-15 08:20] VITALS: BP 118/65
[2020-08-15] MEDS: SENNOSIDES/DOCUSATE 8.6-50 MG 1 EACH TABLET PO SCH (10:21)
[2020-08-15] MEDS: PRENATAL VITAMIN W DHA CAPSULE PO SCH (10:21)
[2020-08-15] MEDS: FAMOTIDINE 20 MG TABLET PO SCH (10:21)
[2020-08-15] MEDS: FERROUS SULFATE 325 MG TABLET PO SCH (10:21)
[2020-08-15] MEDS: DOCUSATE SODIUM 100 MG CAPSULE PO SCH (10:22)
--- NOTE | 2020-08-15 13:09 | PDOC DISCHARGE SUMMARY ---
Impression - Admit/DC Date/PCP Admission Date/Primary Care Provider: 08/13/20 09:48 RODRICK FOX MD Discharge Date: 08/15/20 - Discharge Diagnosis (1) Perineal laceration during delivery Is this a current diagnosis for this admission?: Yes (2) Rh negative status during Is this a current diagnosis for this admission?: Yes (3) Status post vacuum-assisted vaginal delivery Is this a current diagnosis for this admission?: No (4) Normal vaginal delivery Is this a current diagnosis for this admission?: Yes - Additional Information Discharge Diet: Regular Discharge Activity: Balance Activity w/Rest, Pelvic Rest Referrals: RODRICK FOX MD [Primary Care Provider] - Prescriptions: Ibuprofen [Motrin 800 mg Tablet] 800 mg PO Q8HP PRN #60 tablet PRN Reason: Home Medications: Prenat 115/Iron Fum/Folic/Dss [ 19 Tablet] 1 tab PO DAILY 11/08/18 Ibuprofen [Motrin 800 mg Tablet] 800 mg PO Q8HP PRN #60 tablet 08/15/20 Hospital Course 59. Maternal Morbidity (serious complications experinced by the mother associated with labor and delivery: None of the above Results Laboratory Results: WBC 12.7 10^3/uL (4.0-10.5) H 08/14/20 06:38 RBC 4.38 10^6/uL (3.72-5.28) 08/14/20 06:38 Hgb 13.0 g/dL (12.0-15.5) 08/14/20 06:38 Hct 37.8 % (36.0-47.0) 08/14/20 06:38 MCV 86 fl (80-97) 08/14/20 06:38 MCH 29.7 pg (27.0-33.4) 08/14/20 06:38 MCHC 34.4 g/dL (32.0-36.0) 08/14/20 06:38 RDW 16.3 % (11.5-14.0) H 08/14/20 06:38 Plt Count 228 10^3/uL (150-450) 08/14/20 06:38 Lymph % (Auto) 17.9 % (13-45) 08/13/20 10:36 [place] % (Auto) 5.3 % (3-13) 08/13/20 10:36 Eos % (Auto) 0.4 % (0-6) 08/13/20 10:36 Baso % (Auto) 0.2 % (0-2) 08/13/20 10:36 Absolute Neuts (auto) 7.6 10^3/uL (1.7-8.2) 08/13/20 10:36 Absolute Lymphs (auto) 1.8 10^3/uL (0.5-4.7) 08/13/20 10:36 Absolute Monos (auto) 0.5 10^3/uL (0.1-1.4) 08/13/20 10:36 Absolute Eos (auto) 0.0 10^3/uL (0.0-0.6) 08/13/20 10:36 Absolute Basos (auto) 0.0 10^3/uL (0.0-0.2) 08/13/20 10:36 Seg Neutrophils % 76.2 % (42-78) 08/13/20 10:36 Urine Color YELLOW 08/13/20 10:00 Urine Appearance CLOUDY 08/13/20 10:00 Urine pH 8.0 (5.0-9.0) 08/13/20 10:00 Ur Specific [place] 1.005 08/13/20 10:00 Urine Protein NEGATIVE mg/dL (NEGATIVE) 08/13/20 10:00 Urine Glucose (UA) NEGATIVE mg/dL (NEGATIVE) 08/13/20 10:00 Urine Ketones NEGATIVE mg/dL (NEGATIVE) 08/13/20 10:00 Urine Blood SMALL (NEGATIVE) H 08/13/20 10:00 Urine Nitrite NEGATIVE (NEGATIVE) 08/13/20 10:00 Urine Bilirubin NEGATIVE (NEGATIVE) 08/13/20 10:00 Urine Urobilinogen NEGATIVE mg/dL (<2.0) 08/13/20 10:00 Ur Leukocyte Esterase LARGE (NEGATIVE) H 08/13/20 10:00 Urine Ascorbic Acid 20 (NEGATIVE) H 08/13/20 10:00 Urine Opiates Screen NEGATIVE 08/13/20 10:00 Urine Methadone Screen NEGATIVE 08/13/20 10:00 Ur Barbiturates Screen NEGATIVE 08/13/20 10:00 Ur Phencyclidine Scrn NEGATIVE 08/13/20 10:00 Ur Amphetamines Screen NEGATIVE 08/13/20 10:00 U Benzodiazepines Scrn NEGATIVE 08/13/20 10:00 Urine Cocaine Screen NEGATIVE 08/13/20 10:00 U Marijuana (THC) Screen NEGATIVE 08/13/20 10:00 RPR NONREACTIVE (NONREACTIVE) 08/13/20 10:36 Blood Type B NEGATIVE 08/13/20 10:36 Antibody Screen NEGATIVE 08/13/20 10:36 Plan Plan of Treatment: follow up in 4 weeks at [facility] for post check
== END 2020-08-15 14:55 | disposition home or self-care (01) | DRG 807 ==
LOC: LR 09:48 → 2S 22:05
PROVIDERS: ADMIT Obstetrics & Gynecology Gynecology; ATTEND Obstetrics & Gynecology Gynecology
PROC: 10E0XZZ Delivery of Products of Conception, External Approach (ICD-10-PCS; principal; 2020-08-13)
DX: O36.5930 Maternal care for other known or suspected poor fetal growth, third trimester, not applicable or unspecified (principal); Z37.0 Single live birth; O69.2XX0 Labor and delivery complicated by other cord entanglement, with compression, not applicable or unspecified; O26.893 Other specified pregnancy related conditions, third trimester; O70.0 First degree perineal laceration during delivery; Z67.21 Type B blood, Rh negative; Z3A.39 39 weeks gestation of pregnancy
CPT/HCPCS: 1967; 36415; 80307; 81005; 85025; 85027; 86592; 86850; 86900; 86901; 94760; J2590; J2795; J3010; J3490